=== PATIENT | male | born 1975 | race Caucasian/White ===

== ENCOUNTER 2020-06-03 15:51 | Emergency (ER) | payer OTHER, SELFPAY ==
--- NOTE | ~2020-06-03 | XR_ITS ---
XR chest 2V 06/03/2020 16:11 Indication: Hypertension. Procedure: 2 view chest Comparison: Comparison to multiple prior studies sequentially, with oldest reviewed study dated 03/2016. Findings: Heart size normal. There is chronic bibasilar scarring, unchanged. No acute focal pneumonia , pulmonary edema, pleural effusion or pneumothorax. Impression: 1: No acute cardiopulmonary disease. Chronic bibasilar scarring. Reviewed, dictated and finalized at location A. Impression: 1: No acute cardiopulmonary disease. Chronic bibasilar scarring.
--- NOTE | 2020-06-03 15:53 | ECG_ITS ---
Measurements Intervals [place] Rate: 84 P: 17 MN: 153 QRS: -3 QRSD: 89 T: 3 QT: 343 QTc: 408 Interpretive Statements SINUS RHYTHM RSR' IN V1 OR V2, CONSIDER RIGHT VENTRICULAR HYPERTROPHY OR RIGHT VCD BORDERLINE T WAVE ABNORMALITY- INFERIOR LEADS BORDERLINE ECG Electronically Signed On 06-03-2020 16:11:44 CDT by Colin Mata D.O.
[2020-06-03 15:54] VITALS: BP 181/123; PULSE 95; RESP 18; TEMP 36.9; O2SAT 99
[2020-06-03 16:12] LABS: Basophils Absolute Auto 0.1 K/mm3 (0.0-0.1); Basophils Percent Auto 0.5 % (0.2-1.2); Eosinophils Absolute Auto 0.1 K/mm3 (0-0.3); Eosinophils Percent Auto 0.9 % (0-4.4); Hematocrit 48.7 % (42.0-52.0); Hemoglobin 17.2 g/dL (14.0-18.0); Immature Granulocyte Absolute 0.04 K/mm3 (0.00-0.031); Immature Granulocyte Percent A 0.3 % (0-0.5); Lymphocytes Percent Auto 28.4 % (18.3-44.2); Mean Corpuscular HGB Conc 35.3 g/dl (32-36); Mean Corpuscular Hemoglobin 31.9 pg (26-34); Mean Corpuscular Volume 90.2 fl (80-100); Monocytes Absolute Auto 0.7 K/mm3 (0.1-0.6); Neutrophils Absolute Auto 7.9 K/mm3 (1.3-6.7); Neutrophils Percent Auto 63.9 % (45.5-73.1); Platelet Count Result 250 k/mm3 (150-375); Red Cell Distribution Width 12.5 % (11.5-14.5); White Blood Count 12.3 K/mm3 (4.5-10.0)
[2020-06-03 16:21] LABS: INR 0.9
[2020-06-03 16:22] LABS: Partial Thromboplastin Time 26.3 SECONDS (22.3-36.8)
[2020-06-03 16:25] LABS: Blood Urea Nitrogen 6 mg/dL (9-20); Carbon Dioxide 22 mmol/L (22-30); Chloride 106 mmol/L (98-107); Estimated CRCL calculation 106 ml/min; Estimated Glomerular Filt Rate > 60; Glucose 104 mg/dL (75-110); Sodium 138 mmol/L (137-145)
[2020-06-03 16:35] LABS: Troponin I < 0.012 ng/mL (0.000-0.034)
--- NOTE | 2020-06-03 16:58 | ED.CHESTPAIN ---
HPI - Chest Pain General Chief Complaint: Chest Pain Stated Complaint: blood pressure is too high/CP Time Seen by Provider: 06/03/20 16:58 Source: patient and family Mode of arrival: ambulatory Limitations: no limitations History of Present Illness HPI narrative: , Patient is a 45-year-old male with a history of hypertension who presents for evaluation of elevated blood pressure readings. Patient states he discontinued his medications 2 months ago because he did not notice a difference while taking the blood pressure medications. Patient was seen in Dr. Garcia's office today and had elevated blood pressure readings and so was sent here for evaluation. Patient denies any current headache, chest pain, shortness of breath, nausea, diaphoresis or flank pain. Patient states he otherwise feels normal. Patient had a cardiac catheterization due to an end STEMI in [address] Lida Lr which showed mild coronary artery disease without any obstructive lesions and a normal left ventricular systolic function. Patient has not followed up with since his discharge from that hospitalization 2 years ago. Related Data Allergies Allergy/AdvReac Type Severity Reaction Status Date / Time No Known Allergies Allergy Verified 06/03/20 15:51 Review of Systems Review of Systems: Narrative: CONSTITUTIONAL: Denies fever, chills, or sweats. EYES: Denies visual changes, redness, or discharge. ENT: Denies rhinorrhea, congestion, sore throat, or otalgia. CARDIOVASCULAR: Denies chest pain, palpitations, or edema. RESPIRATORY: Denies cough or dyspnea. GASTROINTESTINAL: Denies abdominal pain, nausea, vomiting, or diarrhea. GENITOURINARY: Denies dysuria or hematuria. SKIN: Denies rash or itching. MUSCULOSKELETAL: Denies back pain, joint pain, or myalgia. NEUROLOGIC: Denies headache, numbness, or weakness. [facility] Past Medical History Medical History (Updated 06/03/20 @ 17:23 by Yaneth Frye MD) Hyperlipidemia Hyperthyroidism NSTEMI (non-ST elevated myocardial infarction) Surgical History Surgical History (Updated 06/03/20 @ 17:18 by Yaneth Frye MD) H/O cardiac catheterization Social History Social History Smoking status: Heavy tobacco smoker Alcohol intake: current Gender identity (if verbalized by the patient): Male Exam Narrative: Exam Narrative: GENERAL: Awake, alert, conversant HEAD: Normocephalic, atraumatic. EYES: PERRLA and EOMI. ENT: Nares clear, no rhinorrhea or epistaxis. Mucous membranes moist. NECK: Supple. CHEST: No respiratory distress, breathing even and non labored HEART: Regular rate, sinus rhythm ABDOMEN:Non distended, non tender EXTREMITIES: Normal range of motion. No edema. SKIN: Warm, dry, no rash. NEURO:No focal deficits. Alert and oriented x3 Course Vital Signs Vital signs: Vital Signs Temperature 36.9 C 06/03/20 15:54 Pulse Rate 95 06/03/20 15:54 Respiratory Rate 18 06/03/20 15:54 Blood Pressure 181/123 H 06/03/20 15:54 Pulse Oximetry 99 06/03/20 15:54 Temperature 36.9 C 06/03/20 15:54 Pulse Rate 95 06/03/20 15:54 Respiratory Rate 18 06/03/20 15:54 Blood Pressure 181/123 H 06/03/20 15:54 Pulse Oximetry 99 06/03/20 15:54 MDM - Chest Pain MDM Narrative Medical decision making narrative: Patient presented for evaluation of elevated blood pressure readings. Patient is not having any current anginal type symptoms. He denies current chest pain, shortness of breath, diaphoresis, nausea, vomiting, denies current headache. Patient states he feels fine. He does have elevated blood pressure reading at the time of assessment here. Spoke with the patient's marketing database consultant who he had seen with prior hospitalization for NSTEMI in 2018 who recommends restarting his metoprolol tartrate 25 mg every 12 and adding losartan 50 mg daily with follow-up in his office next week. Pt with reassuring labs here. No
[2020-06-03] MEDS: hydrALAZINE HCL 20 MG/ML VIAL IV PUSH (17:39)
[2020-06-03 18:26] VITALS: BP 185/102; PULSE 87; RESP 14; O2SAT 97
== END 2020-06-03 18:09 | disposition home or self-care (01) ==
PROVIDERS: Emergency Medicine; Emergency Provider Emergency Medicine; PCP Family Medicine
DX: I10 Essential (primary) hypertension (principal); E78.5 Hyperlipidemia, unspecified; I25.2 Old myocardial infarction; E05.90 Thyrotoxicosis, unspecified without thyrotoxic crisis or storm; F17.200 Nicotine dependence, unspecified, uncomplicated; R94.31 Abnormal electrocardiogram [ECG] [EKG]
CPT/HCPCS: 36415; 71046; 80048; 84484; 85025; 85610; 85730; 93005; 96374; 99284; J0360

== ENCOUNTER 2020-07-24 09:07 | Outpatient (CLI) | payer OTHER, SELFPAY ==
[2020-07-24 09:36] LABS: Basophils Absolute Auto 0.1 K/mm3 (0.0-0.1); Basophils Percent Auto 0.4 % (0.2-1.2); Eosinophils Absolute Auto 0.2 K/mm3 (0-0.3); Eosinophils Percent Auto 0.8 % (0-4.4); Hematocrit 49.3 % (42.0-52.0); Hemoglobin 17.1 g/dL (14.0-18.0); Immature Granulocyte Absolute 0.07 K/mm3 (0.00-0.031); Immature Granulocyte Percent A 0.4 % (0-0.5); Lymphocytes Absolute Auto 3.29 K/mm3 (0.9-3.2); Lymphocytes Percent Auto 18.4 % (18.3-44.2); Mean Corpuscular HGB Conc 34.7 g/dl (32-36); Mean Corpuscular Hemoglobin 32.4 pg (26-34); Mean Corpuscular Volume 93.5 fl (80-100); Monocytes Percent Auto 5.7 % (2.6-8.5); Neutrophils Absolute Auto 13.3 K/mm3 (1.3-6.7); Neutrophils Percent Auto 74.3 % (45.5-73.1); Platelet Count Result 245 k/mm3 (150-375); Red Blood Count 5.27 M/mm3 (4.6-6.20); Red Cell Distribution Width 12.9 % (11.5-14.5); White Blood Count 17.9 K/mm3 (4.5-10.0)
[2020-07-24 09:48] LABS: Alanine Aminotransferase 35 U/L (4-50); Alkaline Phosphatase 103 U/L (38-126); Anion Gap 4 mmol/L (8-16); Aspartate Amino Transferase 25 U/L (17-59); Bilirubin,Total 0.4 mg/dL (0.2-1.3); Blood Urea Nitrogen 8 mg/dL (9-20); Calcium 9.2 mg/dL (8.4-10.2); Carbon Dioxide 26 mmol/L (22-30); Chloride 107 mmol/L (98-107); Cholesterol 253 mg/dL (0-200); Estimated Glomerular Filt Rate > 60; Glucose 111 mg/dL (75-110); HDL Direct 26 mg/dL; Potassium 4.2 mmol/L (3.4-5.0); Sodium 137 mmol/L (137-145); Triglycerides 370 mg/dL (<150)
[2020-07-24 09:59] LABS: LDL Cholesterol Direct 149 mg/dL
[2020-07-24 10:17] LABS: Total Triiodothyronine (T3) 1.24 NG/ML (0.97-1.69)
[2020-07-24 10:18] LABS: Microalbumin Urine Random 6.7 mg/L (0-16.7)
[2020-07-24 10:29] LABS: Free T4 Free Thyroxine 0.97 ng/mL (0.78-2.19); Vitamin D 25 Hydroxy 18.7 ng/mL
== END 2020-07-24 09:08 | disposition home or self-care (01) ==
PROVIDERS: PCP Family Medicine; Visit Provider Nurse Practitioner
DX: Z00.00 Encounter for general adult medical examination without abnormal findings (principal)
CPT/HCPCS: 36415; 80053; 80061; 82043; 82306; 84439; 84443; 84480; 85025

== ENCOUNTER 2021-06-26 22:20 | Emergency (ER) | payer OTHER, SELFPAY ==
--- NOTE | ~2021-06-26 | XR_ITS ---
EXAMINATION: XR hip LT 2V w AP pelvis EXAM DATE: 06/27/2021 00:04 INDICATION: No known recent injury provided at this time. Pain of the left hip. TECHNIQUE: Left hip frontal, 'frog leg' projections for interpretation. Frontal projection pelvis. C omparison is made to prior examination from 05/22/2015. FINDINGS: Smooth left hip femoral head contour, no radiographic evidence of avascular necrosis. Ther e is mild symmetric bilateral hip primary osteoarthritis. There are no acute pelvic or hip fractures or dislocations identified. There is no subcutaneous gas. The soft tissue is unremarkable. There are no radiopaque foreign bodies. IMPRESSION: Mild symmetric bilateral hip osteoarthritis. Reviewed, dictated and finalized at location A.
[2021-06-26 22:31] VITALS: BP 160/90; PULSE 99; RESP 17; TEMP 36.4; O2SAT 97
[2021-06-26] MEDS: KETOROLAC (*BKC) 60 MG/2 ML VIAL IM (23:49)
--- NOTE | 2021-06-27 00:52 | ED.LOWEXIN ---
HPI - Extremity Injury (Lower) General Chief Complaint: Extremity Injury, Lower Stated Complaint: L hip pain x 3 days no injury. Time Seen by Provider: 06/26/21 23:06 History of Present Illness HPI Narrative: Patient is a 46-year-old male who presents to the ER with aching hip pain. Ongoing for 3 days. Lateral left hip. Radiates into the anterior aspect of his thigh and knee. No numbness or tingling. No known injury. No improvement with ibuprofen. No low back pain. Denies fevers or chills or sweats. No swelling. Related Data Allergies Allergy/AdvReac Type Severity Reaction Status Date / Time No Known Allergies Allergy Verified 06/26/21 22:30 Review of Systems Review of Systems: All systems reviewed & are unremarkable except as noted in HPI and below Constitutional: Constitutional: Denies chills, Denies fever(s) and Denies weakness Cardiovascular: Cardiovascular: Denies chest pain Respiratory: Respiratory: Denies dyspnea Musculoskeletal: Musculoskeletal: Denies back pain, Reports arthralgias, Denies joint swelling and Reports muscle cramps Neurologic: Denies syncope, Denies focal weakness and Denies numbness PMFSH Past Medical History Medical History (Updated 06/27/21 @ 00:57 by Landon Cervantes MD) Hyperlipidemia Hyperthyroidism NSTEMI (non-ST elevated myocardial infarction) Surgical History Surgical History (Updated 06/03/20 @ 17:18 by Yaneth Frye MD) H/O cardiac catheterization Family History Family History (System 09/25/19 @ 09:26 by Nicolle Mendoza) Other Hypertension Social History Social History Smoking status: Heavy tobacco smoker Alcohol intake: current Gender identity (if verbalized by the patient): Female Exam Narrative: GENERAL: Well-appearing, well-nourished, and in no acute distress. HEAD: Normocephalic, atraumatic. CHEST: Clear to auscultation. No respiratory distress. HEART: Regular rate and rhythm. Normal peripheral pulses. ABDOMEN: Soft, nontender, nondistended. EXTREMITIES: Focused exam of the left lower extremity with limited internal rotation and forward flexion due to pain in the hip. No swelling or redness on the thigh. Sensation intact. SKIN: Warm, dry, no rash. NEURO: Alert and oriented x3. PSYCH: Normal mood and affect. Course Course Emergency Course: Tightness versus muscle strain. Discharge home with prednisone and Flexeril. Vital Signs Vital signs: Vital Signs Temperature 97.6 F 06/26/21 22:31 Pulse Rate 99 06/26/21 22:31 Respiratory Rate 17 06/26/21 22:31 Blood Pressure 160/90 H 06/26/21 22:31 Pulse Oximetry 97 06/26/21 22:31 Temperature 97.6 F 06/26/21 22:31 Pulse Rate 99 06/26/21 22:31 Respiratory Rate 17 06/26/21 22:31 Blood Pressure 160/90 H 06/26/21 22:31 Pulse Oximetry 97 06/26/21 22:31 MDM - Extremity Injury (Lower) Imaging Data My impression: X-ray pelvis and left hip. No acute osseous injury. Discharge Plan Discharge Clinical Impression: Acute hip pain Patient Disposition: Home, Self-Care Condition: Stable Instructions: Hip Bursitis (ED) Additional Instructions: Follow-up with your primary care doctor. Return the ER if you have new injury, you have redness/swelling to lower extremity, you have chest pain or shortness of breath, develop fever over 100.4 ?F, you have additional concerns. Prescriptions: New cyclobenzaprine 10 mg tablet 10 mg PO TID PRN (Reason: muscle spasm) Qty: 20 RF: 0 prednisone 50 mg tablet 50 mg PO DAILY Qty: 7 RF: 0 No Action metoprolol tartrate 25 mg tablet 25 mg PO Q12H 30 Days Qty: 60 RF: 0 losartan 50 mg tablet 50 mg PO DAILY 30 Days Qty: 30 RF: 0 Follow-up/Referrals: Issa Garcia MD [Primary Care Provider] -
[2021-06-27 01:06] VITALS: BP 149/83; PULSE 88; RESP 18; O2SAT 98
== END 2021-06-27 01:08 | disposition home or self-care (01) ==
PROVIDERS: Emergency Provider Emergency Medicine; PCP Family Medicine
DX: M25.552 Pain in left hip (principal); I25.2 Old myocardial infarction; E78.5 Hyperlipidemia, unspecified; F17.200 Nicotine dependence, unspecified, uncomplicated
CPT/HCPCS: 73502; 96372; 99283; J1885

== ENCOUNTER 2021-10-26 13:15 | Outpatient (RCR) | payer OTHER, SELFPAY ==
[2021-10-26 15:31] VITALS: BP 130/71; PULSE 94; RESP 20; TEMP 36.9; O2SAT 97
[2021-10-26] MEDS: diphenhydrAMINE HCl CAP 25 MG CAPSULE PO (15:34)
[2021-10-26] MEDS: FAMOTIDINE 20 MG TABLET PO (15:34)
[2021-10-26] MEDS: ACETAMINOPHEN 325 MG TABLET 650 MG PO (15:34)
[2021-10-26 16:28] VITALS: BP 118/64
== END 2021-10-26 16:00 ==
LOC: AMCINF 13:15
PROVIDERS: Visit Provider Internal Medicine Hematology & Oncology
DX: U07.1 COVID-19 (principal); I10 Essential (primary) hypertension; I25.10 Atherosclerotic heart disease of native coronary artery without angina pectoris
CPT/HCPCS: A9270; M0243; Q0244

== ENCOUNTER 2021-10-28 10:01 | Emergency (ER) | payer OTHER, SELFPAY ==
--- NOTE | ~2021-10-28 | XR_ITS ---
XR chest 1V portable DATE: 10/28/2021 12:40 INDICATION: Tachycardia. Covid infection. TECHNIQUE: Portable upright AP chest on 10/24/2021 at 1235 hours COMPARISON: 06/03/2020 PA and lateral chest FINDINGS: There is patchy infiltrate in the mid and lower lung zones, most prominent in the mid to up per right lung and left lower lung. No pleural effusion or pulmonary vascular congestion or pneumothorax. Normal heart size. IMPRESSION: Patchy bilateral pulmonary infiltrates suggesting bilateral pneumonia Reviewed, dictated and finalized at location A. ATIONS AND MAINTENANCE SUPERVISOR IMPRESSION: Patchy bilateral pulmonary infiltrates suggesting bilateral pneumon ia
--- NOTE | ~2021-10-28 | CT_ITS ---
EXAMINATION: CTA chest PE protocol DATE: 10/28/2021 14:51 INDICATION: Elevated d-dimer. Covid-positive on 10/22/2021 TECHNIQUE: Computed tomography angiography (CTA) of the chest was performed with 100 mL Omnipaque-350 intravenous contrast timed to evaluate the pulmonary arteries. Coronal maximum intensity projection 3D-reconstructions were created by the technologist. Automated exposure control and iterative reconst ruction technique were employed. Exam dose: 522.49 mGy-cm total exam DLP. COMPARISON: 10/28/2021 portable AP chest FINDINGS: There is diagnostic contrast enhancement of pulmonary embolus and no evidence of pulmonary embolism. No thoracic aortic aneurysm or dissection. Heart size is normal. No pericardial or pleural effusion. There are extensive patchy bilateral pulmonary infiltrates with cystic appearance and peripheral pred ominance. Discoid atelectasis or scarring in both lower lobes. There is mild bilateral hilar and mediastinal lymphadenopathy, likely reactive. The adrenal glands are of normal morphology. Small sliding hiatal. No suspicious osteolytic or osteoblastic lesions. IMPRESSION: Extensive bilateral primarily peripheral pulmonary infiltrates Prominent discoid atelectasis or scarring in the lower lobes Probable reactive bilateral hilar and mediastinal mild lymphadenopathy No evidence of pulmonary embolism Reviewed, dictated and finalized at Location A. Reviewed, dictated and finalized at location A. REFINER
[2021-10-28 10:05] VITALS: BP 139/94; PULSE 107; RESP 24; O2SAT 99
[2021-10-28 11:28] LABS: Basophils Percent Auto 0.2 % (0.2-1.2); Hematocrit 49.2 % (42.0-52.0); Hemoglobin 17.5 g/dL (14.0-18.0); Immature Granulocyte Absolute 0.03 K/mm3 (0.00-0.031); Immature Granulocyte Percent A 0.6 % (0-0.5); Lymphocytes Absolute Auto 1.13 K/mm3 (0.9-3.2); Lymphocytes Percent Auto 22.7 % (18.3-44.2); Mean Corpuscular HGB Conc 35.6 g/dl (32-36); Mean Corpuscular Hemoglobin 31.4 pg (26-34); Mean Corpuscular Volume 88.2 fl (80-100); Mean Platelet Volume 12.2 fl (7.4-10.4); Monocytes Absolute Auto 0.4 K/mm3 (0.1-0.6); Monocytes Percent Auto 8.4 % (2.6-8.5); Neutrophils Absolute Auto 3.4 K/mm3 (1.3-6.7); Neutrophils Percent Auto 68.1 % (45.5-73.1); Platelet Count Result 114 k/mm3 (150-375); Red Blood Count 5.58 M/mm3 (4.6-6.20); Red Cell Distribution Width 12.4 % (11.5-14.5)
[2021-10-28 11:43] LABS: Alanine Aminotransferase 40 U/L (4-50); Alkaline Phosphatase 99 U/L (38-126); Anion Gap 14 mmol/L (8-16); Aspartate Amino Transferase 47 U/L (17-59); Bilirubin,Total 0.5 mg/dL (0.2-1.3); Blood Urea Nitrogen 14 mg/dL (9-20); Calcium 8.5 mg/dL (8.4-10.2); Carbon Dioxide 19 mmol/L (22-30); Chloride 96 mmol/L (98-107); Estimated CRCL calculation 119 ml/min; Estimated Glomerular Filt Rate > 60; Glucose 117 mg/dL (65-110); Lipase 110 U/L (23-300); Potassium 3.7 mmol/L (3.4-5.0); Sodium 129 mmol/L (137-145)
[2021-10-28 11:43] LABS: Add Urine Microscopic? YES; Appearance Urine Clear (Clear); Bilirubin Urine Negative (Negative); Blood Urine Negative (Negative); Color Urine Yellow (Yellow); Glucose Urine UA Negative (Negative); Ketones Urine 2+ mg/dL (Negative); Leukocyte Esterase Ur Negative LEU/UL (Negative); Mucus Urine Rare /lpf; Nitrate Urine Negative (Negative); Protein Urine 1+ mg/dL (Negative); RBC Urine 0-2 /hpf (0-2); Specific Grav Ur 1.019 (1.001-1.035); Urobilinogen Urine Negative mg/dL (<2.0)
[2021-10-28 12:00] VITALS: BP 137/82; PULSE 78; RESP 21; O2SAT 100
--- NOTE | 2021-10-28 12:29 | ECG_ITS ---
Measurements Intervals [place] Rate: 108 P: 30 MO: 123 QRS: 10 QRSD: 81 T: -2 QT: 323 QTc: 434 Interpretive Statements SINUS TACHYCARDIA EARLY PRECORDIAL R/S TRANSITION BORDERLINE T WAVE ABNORMALITY- INFERIOR LEADS BASELINE ARTIFACT- I, II, III, AVR, AVL, AVF, AVF, V2-V6 ABNORMAL ECG Electronically Signed On 10-28-2021 16:55:06 ROOMING HOUSE INSPECTOR by Colin Mata D.O.
--- NOTE | 2021-10-28 12:30 | ED.GENADULT ---
HPI - General Adult General Chief complaint: Nausea/Vomiting/Diarrhea Stated complaint: COVID +, N/V Time Seen by Provider: 10/28/21 10:23 Source: patient Mode of arrival: ambulatory Limitations: no limitations History of Present Illness HPI narrative: Patient presents for evaluation of intractable nausea and vomiting for the last few days. He indicates 1 week ago he developed chills and body aches. He had a Covid test the drive-through 6 days ago which was positive. He had an infusion performed a few days ago and states since that time has been unable to keep anything down. He has experienced a fever, although not currently. Denies any abdominal pain, chest pain, shortness of breath. He does have a nonproductive cough. He did not receive his Covid vaccinations. No additional complaints or concerns. Bowel pattern unchanged. He denies any constipation, diarrhea, blood or mucous in the stool. He was a regular 1 ppd smoker although he has not smoked in the last week. Related Data Allergies Allergy/AdvReac Type Severity Reaction Status Date / Time No Known Allergies Allergy Verified 10/28/21 10:10 Review of Systems Review of Systems: CONSTITUTIONAL: Reports recent fever and chills, none currently. Denies sweats. EYES: Denies visual changes, redness, or discharge. ENT: Denies rhinorrhea, congestion, sore throat, or otalgia. CARDIOVASCULAR: Denies chest pain, palpitations, or edema. RESPIRATORY: Reports mild nonproductive cough. Denies dyspnea. GASTROINTESTINAL: Reports nausea and vomiting. Denies abdominal pain, constipation and diarrhea. GENITOURINARY: Denies dysuria or hematuria. SKIN: Denies rash or itching. MUSCULOSKELETAL: Denies back pain, joint pain, or myalgia. NEUROLOGIC: Denies headache, numbness, dizziness, or weakness. PSYCHIATRIC: Denies anxiety or depression. [facility] Past Medical History Medical History Hyperlipidemia Hyperthyroidism NSTEMI (non-ST elevated myocardial infarction) Surgical History Surgical History H/O cardiac catheterization Family History Family History Other Hypertension Social History Social History Smoking packs per day: 1 Smoking cigarettes per day: 20.0 Years smoked: 25 Smoking pack-years: 25.00 Smoking status: Current every day smoker Tobacco type: cigarettes Alcohol intake: current Gender identity (if verbalized by the patient): Female Spiritual care concerns: No Exam Narrative: GENERAL: Well-appearing, well-nourished, and in no acute distress. HEAD: Normocephalic, atraumatic. EYES: PERRLA and EOMI. ENT: Nares clear, no rhinorrhea or epistaxis. Mucous membranes moist. Oropharynx without tonsillar hypertrophy exudate or other lesions. Bilateral TMs pearly platt nonbulging NECK: Supple. No adenopathy or masses. No carotid bruits or JVD CHEST: Clear to auscultation. No respiratory distress. Cough noted on exam. No wheezes rales or rhonchi HEART: Regular rate and rhythm. No murmur heard. Normal peripheral pulses. ABDOMEN: Soft, nontender, nondistended, normal active bowel sounds. EXTREMITIES: Normal range of motion. No edema. SKIN: Warm, dry, no rash. NEURO: No focal deficits. Alert and oriented x3. PSYCH: Normal mood and affect. Course Course Emergency Course: This is a 46-year-old male with a known history of COVID that presented with reports of nausea and vomiting. He was hydrated in the emergency department. He was given Zofran and his nausea subsided. He was actually able to sleep while he was here in the department, which was relieving for him. He had a chest x-ray which was consistent with pneumonia. CT was obtained due to mildly elevated D-dimer and tachycardia. This showed changes consistent with pneum
[2021-10-28] MEDS: SODIUM CHLORIDE 0.9% IV 1,000 ML 999 ML IV CONT ×2 (12:38→16:13)
[2021-10-28] MEDS: ONDANSETRON INJ 4 MG/2 ML VIAL IV PUSH ×2 (12:39→16:13)
[2021-10-28] MEDS: FAMOTIDINE 20 MG/2 ML VIAL IV PUSH (12:39)
[2021-10-28 13:05] LABS: Lactic Acid Reflex 0.9 mmol/L (0.7-2.1)
[2021-10-28 13:14] LABS: Prothrombin Time 12.9 Seconds (11.1-14.7)
[2021-10-28 13:15] LABS: Partial Thromboplastin Time 31.5 SECONDS (22.3-36.8)
[2021-10-28 13:17] LABS: Troponin I < 0.012 ng/mL (0.000-0.034)
[2021-10-28 13:18] LABS: D Dimer 0.57 ug/mL (<0.48)
[2021-10-28 14:00] VITALS: BP 135/79; PULSE 97; RESP 18; O2SAT 100
[2021-10-28 16:34] LABS: Troponin I < 0.012 ng/mL (0.000-0.034)
== END 2021-10-28 18:01 | disposition home or self-care (01) ==
PROVIDERS: Emergency Provider Nurse Practitioner
DX: U07.1 COVID-19 (principal); J12.82 Pneumonia due to coronavirus disease 2019; R11.2 Nausea with vomiting, unspecified; R00.0 Tachycardia, unspecified; R79.89 Other specified abnormal findings of blood chemistry; E78.5 Hyperlipidemia, unspecified; I25.2 Old myocardial infarction; F17.210 Nicotine dependence, cigarettes, uncomplicated
CPT/HCPCS: 36415; 71045; 71275; 80053; 81001; 83605; 83690; 84484; 85025; 85380; 85610; 85730; 87040; 93005; 96361; 96365; 96375; 96376; 99284; J0696; J2405; J7030; Q9967

== ENCOUNTER 2024-02-14 17:54 | Emergency (ER) | payer OTHER, SELFPAY ==
[2024-02-14 18:04] VITALS: BP 136/95; PULSE 121; RESP 18; TEMP 38.6; O2SAT 97
--- NOTE | 2024-02-14 18:17 | ED.URI ---
HPI - URI/Sore Throat General Chief Complaint: Upper Respiratory Infection Stated Complaint: Cough/SOB Time Seen by Provider: 02/14/24 18:10 Source: patient Mode of arrival: ambulatory Limitations: no limitations History of Present Illness HPI Narrative: Patient is a 48-year-old male who presents with fever, and cough joint pain since last night. Denies any sore throat, nausea, vomiting, diarrhea. Patient was around some family that had similar symptoms. Has been taking Coricidin Tylenol and ibuprofen. Related Data Allergies Allergy/AdvReac Type Severity Reaction Status Date / Time No Known Allergies Allergy Verified 02/14/24 17:56 Review of Systems Review of Systems: All systems reviewed & are unremarkable except as noted in HPI and below Constitutional: Constitutional: Reports body ache(s), Denies chills, Denies fatigue, Reports fever(s), Denies headache(s), Denies malaise and Denies weakness Eyes: Eyes: Denies blurry vision, Denies itchy eyes and Denies loss of vision ENT: Denies otalgia, Denies headache(s), Reports nasal congestion, Denies sinus pain and Denies sore throat Cardiovascular: Cardiovascular: Denies chest pain, Denies irregular heart rhythm and Denies dyspnea Respiratory: Respiratory: Reports cough and Denies dyspnea Gastrointestinal: Gastrointestinal: Denies abdominal pain, Denies diarrhea, Denies nausea and Denies vomiting Musculoskeletal: Musculoskeletal: Denies back pain, Denies myalgias and Denies arthralgias Integumentary/Breasts: Skin/Breast: Denies pruritus and Denies rash Neurologic: Denies headache(s), Denies loss of vision and Denies weakness Psychiatric: Psychiatric: Reports no additional psychiatric complaints Endocrine: Endocrine: Denies fatigue Allergic/Immunologic: Allergic/Immunologic: Denies itchy eyes PMFSH Past Medical History Medical History Hyperlipidemia Hyperthyroidism NSTEMI (non-ST elevated myocardial infarction) Surgical History Surgical History H/O cardiac catheterization Family History Family History Other Hypertension Social History Social History Smoking packs per day: 1 Smoking cigarettes per day: 20.0 Years smoked: 25 Smoking pack-years: 25.00 Smoking status: Current every day smoker Tobacco type: cigarettes Alcohol intake: current Gender identity (if verbalized by the patient): Female Spiritual care concerns: No Comments At time of signature, agree with nursing past medical, surgical, social and family history. There is no relevant family history pertinent to the presenting complaint. Exam Const: General: cooperative, healthy appearing, comfortable, no acute distress and well nourished Nutritional Appearance: well nourished Orientation/consciousness: patient oriented x3 Limitations: no limitations HENMT: Head: normal to inspection, normocephalic and atraumatic Ears: hearing grossly normal bilaterally, external ears normal, TM's normal bilaterally, EAC's normal and no periauricular adenopathy Face/Nose/Sinus: Normal external nose present, Abnormal mucous membranes and turbinates present erythematous bilateral and diffuse, normal facial exam, sinuses nontender and face symmetric Face and sinus: normal facial exam, sinuses nontender and face symmetric Mouth: Yes Normal oral and palatal mucosa present, Yes lip normal, Yes tongue normal, Yes Normal salivary glands and ducts present, Yes oropharynx normal and Yes moist mucous membranes Teeth and gingiva: dentition normal Throat: posterior oropharynx normal, tonsils normal and uvula midline Eyes: General: appearance normal, both eyes and all related structures Alignment and Position: alignment normal and position normal Periorbital: periorbital findings normal
[2024-02-14 18:20] VITALS: BP 136/95; PULSE 121; RESP 18; TEMP 38.6; O2SAT 97
[2024-02-14 19:00] VITALS: BP 137/88; PULSE 113; RESP 18; TEMP 38.2; O2SAT 97
== END 2024-02-14 19:00 | disposition home or self-care (01) ==
PROVIDERS: Emergency Provider Nurse Practitioner Family; PCP Family Medicine
DX: J10.1 Influenza due to other identified influenza virus with other respiratory manifestations (principal); Z20.822 Contact with and (suspected) exposure to COVID-19; F17.210 Nicotine dependence, cigarettes, uncomplicated; E78.5 Hyperlipidemia, unspecified; E05.90 Thyrotoxicosis, unspecified without thyrotoxic crisis or storm; I25.2 Old myocardial infarction
CPT/HCPCS: 87426; 87804; 99213; G0463